=== PATIENT | male | born 1945 | race Caucasian/White ===

== ENCOUNTER 2023-11-08 10:44 | Outpatient (CLI) | payer MEDICARE, OTHER, SELFPAY ==
--- NOTE | 2023-11-08 10:46 | NM_ITS ---
APPROVED REPORT Exam: Nuclear Stress Test Indication: Abnormal EKG, HTN, High cholesterol Patient Location: Outpatient Stress Tech: Christie Cobos NM Tech:Lucrecia Haley, ARRT, RT (R)(N) Ht: 5 ft 8 in Wt: 180 lbs HR: 62 bpm BP: 149/71 mmHg BSA: 1.95 m2 TID: 1.14 BMI: 27.3 History: Abnormal EKG, HTN, High cholesterol Procedure: Patient received 0.4 mg of intravenous Lexiscan, resting heart rate 62 bpm, resting blood pressure 149/71 mmHg, with Lexiscan maximum heart rate achieved was 87 bpm which is % of the maximum predicted heart rate and blood pressure was 149/71 mmHg. With Lexiscan, patient denied any complaint of chest pain. Cardiac Stress and Resting SPECT Images: Cardiac Stress and Resting SPECT images were obtained using technetium 99m Myoview 30.1 mCi stress and 10.37 mCi at rest. Resting and stress imaging in supine and prone positions demonstrate medium sized, mild, partially reversible perfusion defect in the basal to mid inferior LV wall. Gated imaging demonstrates normal global and regional LV systolic function. LVEF is calculated at 62%. Conclusion: Medium sized, mild, partially reversible perfusion defect in the basal to mid inferior LV wall. Findings are suggestive of partial reversible ischemia. Gated imaging demonstrates normal global and regional LV systolic function. LVEF is calculated at 62%. Electronically signed by : Vanesa Saez MD 11/10/2023 11:26:28
--- NOTE | 2023-11-08 10:52 | CA_ITS ---
APPROVED REPORT EXAM: Comprehensive 2D, Doppler, and color-flow Echocardiogram Bisque Ware Dipper: Palma Dumont RDCS Ht: 5 ft 8 in Wt: 194lbs BSA: 2.02 BP: 173/80 mmHg Indications: ABN EKG, EDEMA,HTN,CVA 2D Dimensions Left Atrium 4.56 cm M: 3.0 - 4.0 EF AP4 40.40 % LVOT 2.34 cm (M/F) 1.5-2.5 GL Strain -13.1 % M-Mode Dimensions RVDd 2.58 cm (0.9-2.6) LVDd 5.27 cm (3.5-5.7) Ao Diam 2.91 cm (2.0-3.7) LVDs 2.38 cm (3.5-5.7) IVSd 0.85 cm (0.6-1.1) PWd 0.99 cm (0.6-1.1) EF (Teich) 85.30% FS 54.80% EDV (Teich) 133.60 mL ESV (Teich) 19.70 mL LV Diastology E Decel Time 161 (160-240 msec) E/A Ratio 1.0 MED E' 8.9 (>= 7 cm/sec) E'/MED E' Ratio 9.65 (<= 14) LAT E' 7.3 (>= 10 cm/sec) E/LAT E' Ratio 11.77 (<= 14) Mitral Valve MV E Max Edwin. 86.0 (40-130 cm/s) MV A Velocity 82.0 (40-130 cm/s) E/A Ratio 1.05 MV Decel. Time 161 (160-240 ms) Left Ventricle The left ventricle is normal size. The left ventricular systolic function is normal. The left ventricular ejection fraction is within the normal range. There is increased LV wall thickness. There is normal LV segmental wall motion. The left ventricular diastolic function is normal. LVEF is 55%. Right Ventricle Right ventricle is mildly dilated. The right ventricular systolic function is normal. Atria The left atrium size is normal. The right atrium size is normal. There is no Doppler evidence of interatrial shunt. Aortic Valve The aortic valve is mildly thickened. There is no aortic valvular stenosis. Trace aortic regurgitation. Mitral Valve The mitral valve is normal in structure. No evidence of mitral valve stenosis. Trace mitral regurgitation. Tricuspid Valve The tricuspid valve leaflets are thin and pliable. Trace tricuspid regurgitation. There is insufficient TR jet to estimate RVSP. Pulmonic Valve The pulmonary valve is normal in structure. Trace pulmonic regurgitation. Great Vessels The aortic root is normal in size. The ascending aorta is normal in size. IVC is normal in size and collapses >50% with inspiration. Pericardium There is no pericardial effusion. Conclusion Normal biventricular systolic function. Mild RV dilation. No significant valvular stenosis or regurgitation. Electronically signed by : Vanesa Saez MD 11/09/2023 23:34:07
--- NOTE | 2023-11-08 10:52 | CA_ITS ---
FINAL REPORT TECHNIQUE: Grayscale, color Doppler and duplex Doppler ultrasound of the kidneys, aorta and renal arteries was performed. Multiple velocities were measured. CLINICAL HISTORY: HTN COMPARISON: None FINDINGS: Aorta velocity: 88.2 cm/sec Right kidney: 10.4 cm. No evidence of hydronephrosis or mass. Right intrarenal RI: 0.65 Right renal artery velocity: 165 cm/sec. Right RAR (Renal artery-Aortic Ratio): 1.9 Left Kidney: 11.1 cm. No evidence of hydronephrosis or mass. Left intrarenal RI: 0.76 Left renal artery velocity: 175 cm/sec. Left RAR (Renal Artery-Aortic Ratio): 2 IMPRESSION: Less than 50% bilateral renal artery stenosis. CT angiogram or postcontrast MR angiogram would be more sensitive for evaluation of possible renal artery stenosis. Reviewed, Interpreted and Dictated by Wilman Monson III, MD Transcribed by Marjorie Starr Authenticated and [facility]
[2023-11-08] MEDS: REGADENOSON 0.4MG/5ML SYRINGE 0.400000000000000022 MG IV (13:39)
[2023-11-08] MEDS: ISOTOPE MYOVIEW (PER STUDY) 1 DOSE IV (13:39)
[2023-11-08] MEDS: SODIUM CHLORIDE 0.9% 10ML SYR (RAD ONLY) 10 ML IV ×2 (13:39)
--- NOTE | 2023-11-08 14:28 | CA_ITS ---
APPROVED REPORT Exam: Pharmacologic Technologist: Chirstie Cobos Ht: 5 ft 8 in Wt: 194 lbs BSA: 2.02 m2 HR: 60 bpm BP: 149/71 mmHg Indications: Abnormal ekg, HTN Medical History Medications: Montelukast,,,,, Finasteride,,,,, RoSUVASTATIN,,,,, Niifedipine,,,,, Stress Test Details Test: LEXISCAN HR Resting HR: 62 bpm Max Heart Rate (APMHR): 143 bpm Max HR Achieved: 87 bpm Target HR (85% APMHR): 122 bpm % of APMHR: 61 Recovery HR: 75 bpm BP Resting BP: 149.0/71.0 mmHg Max BP: 149.0/71.0 mmHg Recovery BP: 146.0/74.0 mmHg ECG Resting ECG: Normal sinus rhythm Stress ECG: No significant ST changes Clinical Exercise duration: 04:00 min Highest Stage Achieved: Exercise capacity: 1.0 METs Stress ECG Conclusion Symptoms: None Arrhythmias/Ectopy: None ST-T Changes: None Conclusion: Unremarkable Lexiscan stress test. Myoview images are reported separately. Test Summary REST . . . . . . . Resting REST 08:47 . . 62 . 149/ 71 . . Stage 1 . . . . . . . Myoview Injected Stage 1 01:00 . . 79 . . . . Stage 2 01:00 . . 76 . 145/ 70 . . Stage 3 01:00 . . 74 . 147/ 66 . . Stage 4 01:00 . . 74 . 148/ 69 . Stop exercise at 04:00 RECOVERY 01:00 . . 69 . 146/ 66 . . RECOVERY 02:00 . . 84 . 146/ 66 . . RECOVERY 03:00 . . 74 . 146/ 66 . . RECOVERY 03:18 . . 80 . 146/ 66 . . Electronically signed by : Vanesa Saez MD 11/10/2023 11:23:57
== END 2023-11-08 23:59 ==
PROVIDERS: PCP Nurse Practitioner Family; Visit Provider Nurse Practitioner Family
DX: R94.31 Abnormal electrocardiogram [ECG] [EKG] (principal); I10 Essential (primary) hypertension; I61.9 Nontraumatic intracerebral hemorrhage, unspecified
CPT/HCPCS: 78452; 93017; 93018; 93306; 93976; A9502; J2785

== ENCOUNTER 2023-11-22 08:18 | Day surgery (SDC) | payer MEDICARE, OTHER, SELFPAY ==
[2023-11-22] VITALS (14 sets, daily range): BP systolic 148–184; BP diastolic 74–99; PULSE 63–106; RESP 14–20; O2SAT 96–100; BMI 30.2
--- NOTE | 2023-11-22 07:04 | IR_ITS ---
APPROVED REPORT Patient Location: Outpatient PROCEDURES Selective coronary angiogram Drug-eluting stent deployment to the proximal LAD Drug-eluting stent deployment to the proximal mid dominant right coronary INDICATION Coronary artery disease, Angina pectoris, Abnormal Myoview Informed consent was obtained prior to the procedure. COMPLICATIONS NONE Estimated Blood Loss: LESS THAN 10 ML TECHNIQUE One percent lidocaine used to anesthetize the right anterior aspect of the wrist. The right radial artery was accessed via the Seldinger technique. A 6 Chinese sheath was placed in the right radial artery. 2.5 mg of Verapamil, 800 mcg of nitroglycerin, 1mg Lidocaine and 5000 U Heparin were given through the arterial sheath. The papa catheter was also used to perform selective coronary angiogram. At the end of the diagnostic angiogram therapeutic heparin was administered giving a therapeutic ACT and the guide catheter was placed in left main artery followed by Choice PT extra-support wire placed down the LAD. A 3 mm x 38 mm Runnells frontier stent was placed in the proximal LAD at 18 dawson reducing the severe stenosis to 0%. CINTHYA-3 flow was present before and after the procedure. Following this the guide catheter was placed in the right coronary artery followed by Choice PT to support wire placed distally and a 3.5 x 30 mm Denis frontier stent was deployed at 22 dawson reducing the stenosis. A 4 mm x 20 mm balloon was deployed at 22 dawson throughout the length of the stent. CINTHYA-3 flow was present before and after the procedure. At the end the procedure the apparatus was removed the sheath was removed and hemostasis was achieved using TR banding patient was transferred to the postop putting in stable condition ANGIOGRAPHIC RESULTS The left main artery Normal The left anterior descending artery Has a proximal concentric hazy 70% stenosis followed by an additional 40 to 50% stenosis The circumflex artery Nondominant normal The right coronary artery Is a dominant vessel and has proximal and mid vessel 60 to 70% stenoses The HOGAN ventriculogram reveals Not performed The left ventricular end-diastolic pressure Not measured IMPRESSION Severe two-vessel coronary disease as described above Successful stent to the proximal LAD severe disease reduced to 0% with 1 drug-eluting stent Successful stent to the proximal to mid dominant right coronary artery severe disease reduced to 0% with 1 drug-eluting stent PLAN 1. Plavix 75 mg a day plus aspirin 81 mg daily 2. LDL less than 55 to achieve that high intensity statin 3. Avoidance of tobacco products 4. Risk factor modification 5. Cardiac rehabilitation Electronically signed by : Maxx Mendoza MD 11/22/2023 11:27:35
[2023-11-22 09:02] LABS: Basophils # 0.1 K/mm3 (0-0.2); Basophils % 0.7 % (0.1-2.0); Eosinophils # 0.4 K/mm3 (0.0-0.4); Eosinophils % 4.5 % (0.1-12.0); Hematocrit 49.1 % (42.0-52.0); Hemoglobin 16.5 g/dL (14.1-18.0); Lymphocytes # 2.4 K/mm3 (0.7-4.5); Lymphocytes % 26.2 % (10-50); Mean Corpuscular HGB Conc 33.6 g/dL (31.8-35.4); Mean Corpuscular Hemoglobin 31.6 pg (27.0-31.2); Mean Corpuscular Volume 93.8 fl (80-94); Mean Platelet Volume 8.2 fl (7.4-10.4); Monocytes # 0.6 K/mm3 (0.1-1.0); Monocytes % 6.8 % (1.7-9.3); Neutrophils # 5.6 K/mm3 (1.8-7.8); Neutrophils % 61.8 % (37.0-80.0); Platelet Count 221 K/mm3 (142-424); Red Blood Count 5.23 M/mm3 (4.60-6.20); Red Cell Distribution Width 13.7 % (11.5-17.5); White Blood Count 9.1 K/mm3 (4.8-10.8)
[2023-11-22 09:09] LABS: Chloride 109 mmol/L (98-107)
[2023-11-22 09:10] LABS: Potassium 3.6 mmoL/L (3.5-5.1); Sodium 141 mmol/L (136-145)
[2023-11-22 09:13] LABS: Anion Gap 9.6 mEq/L (5-15); Blood Urea Nitrogen 18 mg/dl (9-20); Calcium 9.5 mg/dl (8.4-10.2); Carbon Dioxide 26 mmol/L (22.0-30.0); Creatinine Clearance Estimated 66 mL/min (50-200); Estimated Glomerular Filt Rate 59 ml/min (>60); GFR (African American) 71 ML/MIN (>60); Glucose 130 mg/dl (74-100)
[2023-11-22] MEDS: VERAPAMIL 2.5MG/ML 2ML VIAL 2.5 MG IV (10:36)
[2023-11-22] MEDS: LIDOCAINE 1% 10ML MDV 20 ML IJ (10:36)
[2023-11-22] MEDS: NITROGLYCERIN 800MCG/8ML SYR (CATH LAB) 800 MCG IA (10:36)
[2023-11-22] MEDS: HEPARIN 1,000 UNITS/500ML NS (CATH LAB) 3000 UNIT IV (10:36)
[2023-11-22] MEDS: diphenhydrAMINE 50MG/ML VIAL 50 MG IV (10:36)
[2023-11-22] MEDS: 0.9 % SODIUM CHLORIDE 500 ML 25 ML IV (10:37)
[2023-11-22] MEDS: HEPARIN 1,000 UNITS/ML 10ML VIAL (CATH LAB) 10000 UNIT IV (11:06)
[2023-11-22] MEDS: FENTANYL 100MCG/2ML VIAL 50 MCG IV (11:21)
[2023-11-22] MEDS: MIDAZOLAM HCL 1MG/1ML 5ML VIAL 1 MG IV (11:22)
[2023-11-22] MEDS: CLOPIDOGREL 300MG TABLET 600 MG PO (11:57)
[2023-11-22] MEDS: ASPIRIN 325MG TABLET 325 MG PO (12:01)
[2023-11-22] MEDS: IOPAMIDOL-370 (76%);100ML BOTTLE 140 ML IV (12:49)
[2023-11-22] MEDS: NIFEdipine XL 30MG TABLET 90 MG PO (15:27)
[2023-11-22 15:31] LABS: CATHL Activated Clotting Time 397 SEC (74-125)
== END 2023-11-22 15:48 | disposition home or self-care (01) ==
PROVIDERS: Visit Provider Internal Medicine
DX: R94.39 Abnormal result of other cardiovascular function study (principal); R94.31 Abnormal electrocardiogram [ECG] [EKG]; I10 Essential (primary) hypertension; I25.118 Atherosclerotic heart disease of native coronary artery with other forms of angina pectoris; Z79.899 Other long term (current) drug therapy
CPT/HCPCS: 80048; 85025; 85347; 92928; 93454; 99152; 99153; C1725; C1769; C1874; C1876; C9600; J1644; Q9967

== ENCOUNTER 2024-01-17 15:41 | Outpatient (CLI) | payer MEDICARE, OTHER, SELFPAY ==
[2024-01-17 16:39] LABS: Hemoglobin A1C 5.5 % (4.0-6.0)
[2024-01-17 18:05] LABS: Alanine Aminotransferase 52 U/L (12-78); Albumin Level 4.5 g/dl (3.5-5.0); Albumin/Globulin Ratio 1.3 (1.1-1.8); Alkaline Phosphatase 66 U/L (38-126); Anion Gap 16.3 mEq/L (5-15); Aspartate Amino Transferase 35 U/L (17-59); Bilirubin,Total 0.8 mg/dl (0.2-1.3); Blood Urea Nitrogen 17 mg/dl (9-20); Calcium 9.8 mg/dl (8.4-10.2); Carbon Dioxide 27 mmol/L (22.0-30.0); Chloride 103 mmol/L (98-107); Estimated Glomerular Filt Rate 54 ml/min (>60); GFR (African American) 65 ML/MIN (>60); Globulin 3.4 g/dL (1.3-3.2); Glucose 97 mg/dl (74-100); Potassium 4.3 mmoL/L (3.5-5.1); Sodium 142 mmol/L (136-145); Total Protein,Serum 7.9 g/dl (6.3-8.2)
== END 2024-01-17 23:59 | disposition home or self-care (01) ==
LOC: LAB 15:43
PROVIDERS: PCP Family Medicine; Visit Provider Specialist
DX: R73.9 Hyperglycemia, unspecified (principal); I61.9 Nontraumatic intracerebral hemorrhage, unspecified; E78.5 Hyperlipidemia, unspecified; G47.33 Obstructive sleep apnea (adult) (pediatric); I25.10 Atherosclerotic heart disease of native coronary artery without angina pectoris; I10 Essential (primary) hypertension
CPT/HCPCS: 36415; 80053; 83036

== ENCOUNTER 2024-01-26 10:22 | Outpatient (CLI) | payer MEDICARE, OTHER, SELFPAY ==
--- NOTE | 2024-01-26 10:23 | MR_ITS ---
FINAL REPORT CLINICAL HISTORY: H/O R-basal ganglia hemorrhagic CVA COMPARISON: None FINDINGS: Multiplanar MR imaging of the brain was performed without and with contrast. There is mild abnormal signal in the deep white matter, nonspecific, but in this age group likely ischemic microvascular change. There is hemosiderin deposition in the right basal ganglia best seen on images 14 and 15 of series #5, consistent with remote hemorrhage or hemorrhagic infarct. There is no evidence of acute intracranial hemorrhage or mass. No abnormal extra-axial fluid collection is seen. The ventricular size is within normal limits. There is no evidence of shift of the midline structures. The posterior fossa and brainstem have an unremarkable appearance. No area of abnormal restricted diffusion is identified. No abnormal contrast enhancement is seen. Normal major vessel vascular flow voids are noted. 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 There is a partially visualized fat signal structure in the left splenius musculature, measuring 5 cm and possibly greater in diameter. 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 IMPRESSION: Mild abnormal signal in the deep white matter, nonspecific but in this age group most likely ischemic microvascular change. Hemosiderin deposition is present in the right basal ganglia as described above, consistent with the patient's clinical history of a right basal ganglia hemorrhagic infarct. 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 Reviewed, Interpreted and Dictated by Kyler Tolbert MD Transcribed by Marjorie Starr Authenticated and [facility]
[2024-01-26] MEDS: SODIUM CHLORIDE 0.9% 10ML FLUSH SYRINGE 10 ML IV (12:12)
[2024-01-26] MEDS: GADOTERIDOL INJ 20ML SYRINGE 17 ML IV (12:12)
--- NOTE | 2024-01-26 12:35 | CA_ITS ---
FINAL REPORT TECHNIQUE: Color Doppler, duplex Doppler and jeter scale sonography of the bilateral neck vasculature was performed. Velocities were measured in the carotid arteries. Stenosis evaluation based on velocity criteria. CLINICAL HISTORY: CVA,HTN COMPARISON: None FINDINGS: The peak systolic velocity of the right common carotid artery is 77 cm/sec and internal carotid artery 79 cm/sec. The diastolic velocity in the internal carotid artery is 24 cm/sec. The ICA/CCA ratio is 1.1. Visually, a small amount of plaque is seen. These findings are consistent with less than 50% stenosis. The external carotid artery is patent. The right vertebral artery is patent with antegrade flow. The peak systolic velocity of the left common carotid artery is 73 cm/sec and internal carotid artery 94 cm/sec. The diastolic velocity in the internal carotid artery is 25 cm/sec. The ICA/CCA ratio is 1.4. Visually, a small amount of plaque is seen. These findings are consistent with less than 50% stenosis. The external carotid artery is patent. The left vertebral artery is patent with antegrade flow. IMPRESSION: No evidence of significant carotid stenosis. Bilateral patent vertebral arteries. If indicated, CTA or MRA could further evaluate. Reviewed, Interpreted and Dictated by Kyler Tolbert MD Transcribed by Marjorie Starr Authenticated and [facility]
== END 2024-01-26 23:59 | disposition home or self-care (01) ==
LOC: RAD 10:23
PROVIDERS: PCP Family Medicine; Visit Provider Specialist
DX: E78.5 Hyperlipidemia, unspecified; G47.33 Obstructive sleep apnea (adult) (pediatric); I63.00 Cerebral infarction due to thrombosis of unspecified precerebral artery; I61.8 Other nontraumatic intracerebral hemorrhage; I10 Essential (primary) hypertension
CPT/HCPCS: 70553; 93880; A9576

== ENCOUNTER → 2024-02-08 20:28 | Outpatient (CLI) | payer MEDICARE, OTHER, SELFPAY | LOC: SL 20:30 | PROVIDERS: PCP Family Medicine; Visit Provider Specialist | DX: G47.33 Obstructive sleep apnea (adult) (pediatric) (principal); G47.37 Central sleep apnea in conditions classified elsewhere | CPT/HCPCS: 95810 ==

== ENCOUNTER 2024-03-20 12:37 | Outpatient (CLI) | payer MEDICARE, OTHER, SELFPAY | END 2024-03-20 23:59 | disposition home or self-care (01) | LOC: RT 12:38 | PROVIDERS: Visit Provider Specialist | DX: G47.33 Obstructive sleep apnea (adult) (pediatric) (principal) | CPT/HCPCS: 94762 ==

== ENCOUNTER → 2024-05-29 20:22 | Outpatient (CLI) | payer MEDICARE, OTHER, SELFPAY | PROVIDERS: Visit Provider Specialist | DX: G47.33 Obstructive sleep apnea (adult) (pediatric) (principal) | CPT/HCPCS: 95811 ==

== ENCOUNTER 2025-06-11 12:42 | Outpatient (CLI) | payer MEDICARE, OTHER, SELFPAY ==
--- OUTSIDE RECORDS SUMMARY | 2025-06-06 10:30 | XMS_ITS | Encounter Summary ---
Author Organization [facility] Address [address] [place] [id number] Care Team Providers Care Canal Boat Operator Name Role Phone Socorro Crenshaw MD Primary Care Provider Reason for Visit * Reason Comments Pre-op Exam Encounter Details Date Type Department Care Team (Latest Contact Info) Description 06/06/2025 10:30 AM EDT Preop Office Visit [facility] - Primary Care, [place] [address], [place] [address] Alisson Castañeda NP [address] [place] [address] [place] [address] Age-related cataract of both eyes, unspecified age-related cataract type (Primary Dx); Preop examination Social History Tobacco Use Types Packs/Day Years Used Date Smoking Tobacco: Former Cigarettes 1 31 Passive Smoke Exposure: Past Smokeless Tobacco: Never Tobacco Cessation:Counseling Given: Not Answered Alcohol Use Standard Drinks/Week Comments Never 0 (1 standard drink = 0.6 oz pur e alcohol) PHQ-2 Answer Date Recorded PHQ-9 Auto Total 0 09/20/2024 Sex and Gender Information Value Date Recorded Sex Assigned at Male 09/15/2023 10:05 AM EST Legal Sex Male 10:00 AM EDT Gender Identity Male 09/15/2023 10:05 AM EST Sexual Orientation Straight 09/15/2023 10 :05 AM EST documented as of this encounter Last Filed Vital Signs Vital Sign Reading Time Taken Comments Blood Pressure 181/82 06/06/2025 10:19 AM EDT Pulse 55 06/06/2025 10:19 AM EDT Temperature 36.7 C (98 F) 06/06/2025 10:19 AM EDT Respiratory Rate 16 06/06/2025 10:19 AM EDT Oxygen Saturation 98% 06/06/2025 10:19 AM EDT Inhaled Oxygen Concentration - - Weight 90.3 kg (199 lb) 06/06/2025 10:19 AM EDT Height 170.2 cm (5' 7 ) 06/06/2025 10:19 AM EDT Body Mass Index 31.17 06/06/2025 10:19 AM EDT documented in this encounter Progress Notes * Alisson Castañeda NP - 06/06/2025 10:30 AM EDT [facility] PRE-OPERATIVE H&P VISIT PATIENT INFORMATION PLANNED SURGERY INFORMATION Patient Name: Lindy Han Date: 06/26/2025, 07/02/2025 Date of : 1945 Location: Surgery [facility] Procedure: Removal of left cataract 06/26/25, Removal of right cataract 07/02/2025 PCP: Socorro Crenshaw MD Consultation Requested by / Surgeon: Date of Service: 06/06/2025 Dr. Corrales Reason for Procedure: Age Related Cataracts Bilateral INDICATIONS / PRE-OP DIAGNOSIS No diagnosis found. ESTIMATED PERIOPERATIVE CARDIAC RISK Revised Cardiac Risk Index (Circ. 100:1043, 1999) the patient's risk factors for cardiac complications include history of cerebrovascular disease, putting him in RCI RISK CLASS II (1 risk factor, risk of major cardiac compl. appr. 1.3%). CLEARANCE STATUS No contraindications to planned surgery. May proceed with surgery as planned. No further testing needed. Patient may require post-operative respiratory and/or oxygen support due to: Sleep apnea diagnosis. SUBJECTIVE HISTORY Lindy Han is a 80 y.o. male who presents for preoperative examination. He has a past medical history of Allergic rhinitis, Back pain, Marin's palsy, Dyslipidemia, Essential hypertension, Hemorrhagic stroke (CMS/HCC), Joint pain, Neck pain, Personal history of colonic polyps, Sleep apnea, Stroke (CMS/HCC), Ulcerative colitis (CMS/HCC), Ulcerative colitis (CMS/HCC), Wears glasses, and Wears hearing aid. He denies fever, chills, or current illness. Patient is requiring clearance based on current medical problems to ensure chronic diseases are stable and no acute illness is present. SURGICAL ISSUES / FUNCTIONAL STATUS Question: Patient Response: Chest pain? No Shortness of breath? No Can you walk 1/2 mile or more? Yes Can you go up more than 2 flights of stairs? Yes Sleep apnea? No Bleeding disorder/Hx. of nose bleeds, excessive bleeding following a surgical procedure? No Personal or Family history of blood clots? No History of anesthesia complications? No Family history of anesthesia complications? No Loose, capped, or false teeth? yes Skin infections? No ALLERGIES Penicillins, Penicillin, and Alpine pollen-monegasque plantain MEDICATIONS *Herbals or Over the Counter Medicines: none Med List for Ambulatory Encounter[1]PAST MEDICAL HISTORY Lindy has a past medical history of Allergic rhinitis, Back pain, Marin's palsy, Dyslipidemia, Essential hypertension, Hemorrhagic stroke (CMS/HCC), Joint pain, Neck pain, Personal history of colonicpolyps, Sleep apnea, Stroke (CMS/HCC), Ulcerative colitis (CMS/HCC), Ulcerative colitis (CMS/HCC), Wears glasses, and Wears hearing aid. FAMILY HISTORY His family history includes Cancer in his mother; Prostate Cancer in his brother. SOCIAL HISTORY Patient reports that he has quit smoking. His smoking use included cigarettes. He has a 31 pack-year smoking history. He has been exposed to tobacco smoke. He has never used smokeless tobacco. He reports that he does not drink alcohol and does not use drugs. PAST SURGICAL HISTORY He has a past surgical history that includes HX Adenoidectomy; HX Cholecystectomy; HX Colonoscopy; HX Upper gastrointestinal endoscopy; HX Elbow surgery; hx knee surgery; hx shoulder surgery; HX Spinal fusion; HX Tonsillectomy; HX Uvulopalatopharygoplasty; HX [place] tooth extraction; and HX Upper gastrointestinal endoscopy. REVIEW OF SYSTEMS Review of Systems Constitutional: Negative. HENT: Negative. Eyes: Negative. Respiratory: Negative. Cardiovascular: Negative. Gastrointestinal: Negative. Endocrine: Negative. Genitourinary: Negative. Musculoskeletal: Negative. Skin: Negative. Allergic/Immunologic: Negative. Neurological: Negative. Hematological: Negative. Psychiatric/Behavioral: Negative. OBJECTIVE Today's Vital Signs There were no vitals taken for this visit. Estimated body mass index is 31.32 kg/m?? as calculated from the following: Height as of 03/28/25: 5' 7 (1.702 m). Weight as of 03/28/25: 200 lb (90.7 kg). Physical ExamRELEVANT LABORATORY VALUES / PRE-OP WORKUP No results found for this or any previous visit (from the past 6 weeks). EKG: No results found for this or any previous visit. ASSESSMENT No diagnosis found. PLAN Patient requires endocarditis prophylaxis: No Recommend perioperative beta-wes: No Instructions for Patient: No food or liquids the morning of surgery. Call surgeon if develops respiratory illness, fever, or other illness. Hold the following medications the morning of surgery Hold all medications, patient reports he takes beta-wes in the evening Stop Aspirin, Advil, Motrin, Ibuprofen, Aleve, other NSAIDs. 7 days prior to surgery. May take Tylenol. Call Dr. Corrales's office to see if you need to stop the Plavix or Aspirin. Needs to see cardiology. Advance Directives: Does the patient have any Advance Directives in place and on file in [facility]? N Care Team Information: Patient Care Team: Socorro Crenshaw MD as PCP - General (Family Medicine) SLOAN was seen today for pre-op exam. Diagnoses and all orders for this visit: Age-related cataract of both eyes, unspecified age-related cataract type Preop examination NOT CLEARED FOR SURGERY TODAY. BP IS HIGH, REPEAT WAS STILL 160/82. NEEDS TO FOLLOW UP WITH CARDIOLOGY AND GET BP UNDER CONTROL FIRST. Electronically signed by: Alisson Castañeda NP, 06/06/2025 at 10:12 AM Please note that this consultation serves to evaluate the patient's medical conditions, with specific attention to the heart, lungs, and infection status. The appropriateness of the operation versus alternative therapies was not evaluated. Neither were risks and benefits specific to the operation discussed [1] Medications List Medication Sig aspirin 81 mg tablet Take 81 mg by mouth in the morning. bisoprolol (ZEBETA) 5 mg tablet Take 2.5 mg by mouth in the morning. budesonide (ENTOCORT EC) 3 mg Capsule, Delayed & Ext.Release Take 9 mg by mouth daily as needed. clopidogreL (PLAVIX) 75 mg tablet Take 75 mg by mouth in the morning. finasteride (PROSCAR) 5 mg tablet Take 1 Tablet (5 mg) by mouth daily. losartan (COZAAR) 50 mg Tablet Take 50 mg by mouth daily. Mesalamine 0.375 gram Capsule, Sust. Release 24 hr Take 1.5 g by mouth daily. montelukast (SINGULAIR) 10 mg Tablet Take 1 Tablet (10 mg) by mouth in the morning. mupirocin (BACTROBAN) 2 % ointment Apply topically as needed. rosuvastatin (CRESTOR) 10 mg Tablet Take 1 Tablet by mouth daily. No current facility-administered medications for this visit. documented in this encounter Plan of Treatment Upcoming Encounters Date Type Department Care Team (Late st Contact Info) Description 09/14/2025 10:10 AM EST Appointment [facility], [place] [address], [place] [address] 09/21/2025 9:40 AM EST Appointment [facility], [place] [address] [place] [address] Socorro Crenshaw MD [address] [place] [id number] documented as of this encounter Visit Diagnoses Diagnosis Age-related cataract of both eyes, unspecified age-related cataract type- Primary Preop examination Preoperative examination, unspecified documented in this encounter Care Teams Canal Boat Operator Relationship Specialty Start Date End Date Socorro Crenshaw MD [address] [place] [id number] PCP - General Family Medicine 09/21/23 documented as of this encounter
--- OUTSIDE RECORDS SUMMARY | 2025-06-11 12:51 | XMS_ITS | Clinical Summary ---
Author Organization [facility] Address [address] [facility] [address] [place] [address] Phone Care Team Providers Care Facing Cutting Machine Operator Name Role Phone Socorro Crenshaw MD Primary Care Pro vider Allergies Active Allergy Reactions Criticality Noted Date Comments Amoxicillin Anaphylaxis High 07/10/2024 Penicillins Anaphylaxis,Hives,It lloyd, Rash,Shortness Of Breath High 05/30/2016 [place] Pollen-Syrian Plantain Shortness Of Breath,Itching High 05/14/2020 Medications aspirin 81 mg Oral Tablet, Chewable Take 81 mg by mouth daily. 12/06/2023 Active NIFEdipine (PROCARDIA XL) 90 mg Oral Tablet Extended Rel 24 hr 09/21/2023 Active montelukast (SINGULAIR) 10 mg Oral Tablet 10/07/2023 Acti ve bisoprolol (ZEBETA) 5 mg Oral Tablet 11/22/2023 Active clopidogreL (PLAVIX) 75 mg Oral Tablet 11/22/2023 Active finasteride (PROSCAR) 5 mg Oral Tablet 09/21/2023 Active rosuvastatin (CRESTOR) 10 mg Oral Tablet 09/21/2023 Active doxycycline hyclate (VIBRAMYCIN) 100 mg Oral Capsule TAKE 1 CAPSULE BY MOUTH TWICE DAILY WITH FOOD AND A FULL GLASS OF WATER FOR 14 DAYS 05/04/2024 Active budesonide (ENTOCORT EC) 3 mg Oral Capsule, Delayed & Ext.Release Take 3 Capsules by mouth daily as needed (UC flare). 90 Capsule 1 10/24/2024 Active Mesalamine (APRISO) 0.375 gram Oral Capsule, Sust. Release 24 hr Take 4 Capsules by mouth daily. 360 Capsule 3 01/17/2025 Active Surgical History Surgery Date Site/Laterality Comments POLYPECTOMY SIGMOIDOSCOPY COLONOSCOPY Medical History Medical History Date Comments Colon polyp Ulcerative colitis (HCC) Family History Medical History Relation Name Comments Prostate Cancer Brother Brain Cancer Mother Relation Name Status Comments Brother Mother Social History Tobacco Use Types Packs/Day Years Used Date Smoking Tobacco: Former Cigarettes 1 15 Q uit: 08/30/1993 Passive Smoke Exposure: Never Smokeless Tobacco: Never Alcohol Use Standard Drinks/Week Comments Not Currently 0 (1 standard drink = 0.6 oz pur e alcohol) Sexually Active Control Partners Comments Not Currently Female Sex and Gender Information Value Date Recorded Sex Assigned at Male 03/22/2024 2:14 PM EDT Legal Sex Male 2:14 PM EDT Gender Identity Male 03/22/2024 2:14 PM EDT Sexual Orientation Not on file Last Filed Vital Signs Vital Sign Reading Time Taken Comments Blood Pressure 130/76 10/24/2024 10:54 AM EST Pulse 54 10/24/2024 10:54 AM EST Temperature 37.4 C (99.3 F) 10/24/2024 9:00 AM EST Respiratory Rate 16 10/24/2024 10:54 AM EST Oxygen Saturation 95% 10/24/2024 10:54 AM EST Inhaled Oxygen Concentration - - Weight 93.3 kg (205 lb 9.6 oz) 10/24/2024 9:00 A M EST Height 172.7 cm (5' 8 ) 10/24/2024 9:00 AM EST Body Mass Index 31.26 10/24/2024 9:00 AM EST Plan of Treatment Health Maintenance Due Date Last Done Comments Cologuard 1945 FIT 1946 Sigmoidoscopy 1946 Virtual Colonography 1946 Wellness Exam Medicare 1949 Hepatitis C Screening 1964 DTaP/TDaP/Td (1 - Tdap) 1965 Pneumococcal Vaccine 50+ (1 of 1 - PCV) 1996 Zoster (1 of 2) 1996 COVID-19 Vaccine ( season) 2025 Influenza Vaccine (#1) 2025 , 06/02/2023, 05/24/2019, Additional history exists Colon Cancer Screening 10/24/2025 Colonoscopy 10/24/2025 10/24/2024 RSV or 60+ Completed 06/20/2024 Hepatitis B Vaccine Aged Out No longe r eligible based on patient's age to complete this topic Meningococcal B Vaccine Aged Out No l onger eligible based on patient's age to complete this topic Procedures Procedure Name Priority Date/Time Associated Diagnosis Comments COLONOSCOPY Routine 10/24/2024 10:33 AM EST Other ulcerative colitis without complication (HCC) from Last 3 Months or Most Recently Relevant to Health Maintenance Results * COLONOSCOPY (10/24/2024 10:33 AM EST) Anatomical Region Laterality Modality Endoscopy Narrative 10/24/2024 10:37 AM EST Table formatting from the original result was not included. Findings Two sessile and benign-appearing polyps measuring from 3 mm in the transverse colon; performed cold forceps biopsy with complete removal One 6 mm sessile, benign-appearing and inflammatory polyp in the transverse colon; performed cold snare with complete removal and retrieved specimen Mild erythematous and friable mucosa in the transverse colon and rectum, consistent with ulcerative colitis; electronic chromoendoscopy (FICE) was used; performed cold forceps biopsy Two sessile and benign-appearing polyps measuring from 7 mm up to 10 mm in the sigmoid colon; performed cold snare with complete removal and retrieved specimen; performed hot snare with complete removal and retrieved specimen The terminal ileum appeared normal. Recommendation Await pathology results Recommend a high fiber diet. Repeat colonoscopy in 1 year, due: 10/24/2025 Will start Apriso. Patient requested an as needed medication for potential UC flare. Will give entocort prn. Pre-Procedure Diagnosis / Indication Other ulcerative colitis without complication (HCC) Post-Procedure Diagnosis Other ulcerative colitis without complication (HCC) Staff Staff Role Rosio Barrios, RN Nurse Momo Winston III, MD Performing Provider Kaitlin Jimenez CRNA HARDBOARD PANEL PRINTER Medications See Anesthesia Record. Preprocedure A history and physical has been performed, and patient medication allergies have been reviewed. The patient's tolerance of previous anesthesia has been reviewed. The risks and benefits of the procedure and the sedation options and risks were discussed with the patient. All questions were answered and informed consent obtained. ASA 3 - Patient with severe systemic disease Details of the Procedure The patient underwent monitored anesthesia care, which was administered by an anesthesia professional. The patient's blood pressure, heart rate, level of consciousness, oxygen, respirations, ECG and ETCO2 were monitored throughout the procedure. A digital rectal exam was performed. The scope was introduced through the anus and advanced to the cecum. Retroflexion was performed in the rectum. Bowel prep was adequate. The patient experienced no blood loss. The procedure was not difficult. The patient tolerated the procedure well. There were no apparent adverse events. Patient provided education and educated on specific discharge instructions. Patient educated on medications given during the procedure and new medications for discharge. Patient verbalizes understanding of discharge education. Patient stable and awaiting transport for discharge. Events Procedure Events Event Event Time ENDO SCOPE IN TIME 10/24/2024 10:16 AM ENDO CECUM REACHED 10/24/2024 10:19 AM ENDO SCOPE WITHDRAW BEGIN 10/24/2024 10:19 AM TSG LUME TI REACHED 10/24/2024 10:21 AM ENDO SCOPE OUT TIME 10/24/2024 10:32 AM Specimens ID Type Source Tests Collected by Time 1 : polyp Tissue Large Intestine, Transverse Colon TSG PATHOLOGY ORDER Momo Winston III, MD 10/24/2024 1033 2 : polyp Tissue Large Intestine, Transverse Colon TSG PATHOLOGY ORDER Momo Winston III, MD 10/24/2024 1033 3 : Tissue Large Intestine, Transverse Colon TSG PATHOLOGY ORDER Momo Winston III, MD 10/24/2024 1033 4 : Tissue Large Intestine, Sigmoid Colon TSG PATHOLOGY ORDER Momo Winston III, MD 10/24/2024 1033 5 : Tissue Large Intestine, Rectum TSG PATHOLOGY ORDER Momo Winston III, MD 10/24/2024 1033 Momo Winston III, MD ENDOSCOPY PROCEDURE ORDERA BLES Final Result from Last 3 Months or Most Recently Relevant to Health Maintenance Insurance MEDICARE [place] PART A AND B MEDICARE [place] PART A AND B Care Teams Facing Cutting Machine Operator Relationship Specialty Start Date End Date Socorro Crenshaw MD [address] [place] [address] PCP - General Family Medicine 07/10/24
--- OUTSIDE RECORDS SUMMARY | 2025-06-11 12:51 | XMS_ITS | Encounter Summary ---
Author Organization [facility] Address [address] [place], [place] [address] Care Team Providers Care Seamer Elastic Band Name Role Phone Socorro Crenshaw MD Primary Care Provider Reason for Visit * Reason Onset Date Comments Medications Refill 01/01/2024 Encounter Details Date Type Department Care Team (Late st Contact Info) Description 01/01/2024 Refill [facility] [address], [address] [place], [place] [id number] Socorro Crenshaw MD [address] [place] [address] [place] [address] Medications Refill Social History Tobacco Use Types Packs/Day Years Used Date Smoking Tobacco: Former Cigarettes 1 31 Passive Smoke Exposure: Past Smokeless Tobacco: Never Alcohol Use Standard Drinks/Week Comments Never 0 (1 standard drink = 0.6 oz pur e alcohol) PHQ-2 Answer Date Recorded PHQ-9 Auto Total 0 09/21/2023 Sex and Gender Information Value Date Recorded Sex Assigned at Male 09/15/2023 10:05 AM EST Legal Sex Male 10:00 AM EDT Gender Identity Male 09/15/2023 10:05 AM EST Sexual Orientation Straight 09/15/2023 10 :05 AM EST documented as of this encounter Plan of Treatment Upcoming Encounters Date Type Department Care Team (Late st Contact Info) Description 09/14/2025 10:10 AM EST Appointment [facility] [address], [address] [place] [id number] 09/21/2025 9:40 AM EST Appointment [facility] Physicians - Primary Care, [place] [address], [address] [place], [place] [id number] Socorro Crenshaw MD [address] [place] [address] [place] [address] documented as of this encounter Visit Diagnoses Not on filedocumented in this encounter Care Teams Seamer Elastic Band Relationship Specialty Start Date End Date Socorro Crenshaw MD [address] [place] [address] PCP - General Family Medicine 09/21/23 documented as of this encounter
--- OUTSIDE RECORDS SUMMARY | 2025-06-11 12:51 | XMS_ITS | Encounter Summary ---
Author Organization [facility] Address [address] [place] [id number] Care Team Providers Care Catering Staff Member Name Role Phone Socorro Crenshaw MD Primary Care Provider Encounter Details Date Type Department Care Team (Late st Contact Info) Description 01/19/2024 Lab Results [facility] [address] [place] [address] Socorro Crenshaw MD [address] [place] [address] [place] [address] Social History Tobacco Use Types Packs/Day Years [...] Description 09/14/2025 10:10 AM EST Appointment [facility] Primary [facility] [place] [address] [place] [address] [place] [address] 09/21/2025 9:40 AM EST Appointment [facility] - Primary Care, [place] [address], [place] [address] Socorro Crenshaw MD [address] [place] [address] [place] [address] documented as of this encounter Visit Diagnoses Not on filedocumented in this encounter Care Teams Catering Staff Member Relationship Specialty Start Date End Date Socorro Crenshaw MD [address] [facility] [place] [place] [address] PCP - General Family Medicine 09/21/23 documented as of this encounter
--- OUTSIDE RECORDS SUMMARY | 2025-06-11 12:51 | XMS_ITS | Clinical Summary ---
Author Organization [facility] Address [address] [place] [address] Care Team Providers Care Director Of Residence Life Name Role Phone Socorro Crenshaw MD Primary Care Provider Allergies Active Allergy Reactions Criticality Noted Date Comments Penicillin Anaphylaxis,Hives,It lloyd, Rash,Shortness Of Breath 06/13/2016 Penicillins Anaphylaxis High 09/20/2023 [place] Pollen-Greek Plantain Itching,Shortness Of Breath 05/14/2020 Medications clopidogreL (PLAVIX) 75 mg tablet Take 75 mg by mouth in the morning. Active bisoprolol (ZEBETA) 5 mg tablet Take 2.5 mg by mouth in the morning. Active aspirin 81 mg tablet Take 81 mg by mouth in the morning. 4 Active finasteride (PROSCAR) 5 mg tabletIndications :Enlarged prostate Take 1 Tablet (5 mg) by mouth daily. 90 Tablet 3 5 Active montelukast (SINGULAIR) 10 mg TabletIndications :Seasonal allergic rhinitis, unspecified trigger Take 1 Tablet (10 mg) by mouth in the morning. 90 Tablet 3 5 Active losartan (COZAAR) 50 mg Tablet Take 50 mg by mouth daily. 5 Active budesonide (ENTOCORT EC) 3 mg Capsule, Delayed & Ext.Release Take 9 mg by mouth daily as needed. 5 Active Mesalamine 0.375 gram Capsule, Sust. Release 24 hr Take 1.5 g by mouth daily. 5 Active mupirocin (BACTROBAN) 2 % ointment Apply topically as needed. 5 Active rosuvastatin (CRESTOR) 10 mg TabletIndications :Mixed hyperlipidemia,Ce rebrovascular accident (CVA) due to other mechanism (CMS/HCC),Hemorrh agic stroke (CMS/HCC),Chronic focal neurological deficit Take 1 Tablet by mouth daily. 90 Tablet 3 5 Active Active Problems Problem Noted Date Diagnosed Date Hemiplegia and hemiparesis f ollowing cerebral infarction affecting left non-dominant side 09/20/2024 Ulcerative colitis without c omplications, unspecified location 09/20/2024 Coronary artery disease invo lving [place] heart, unspecified vessel or lesion type, unspecified whether angina present 03/21/2024 S/P angioplasty with stent 03/21/2024 Chronic focal neurological deficit 09/21/2023 Assessment & Plan (03/28/2025 1:51 PM EDT): Patient doing well on rosuvastatin 10 mg oral daily along with other such risk management. Will continue to monitor going forward and re-check a fasting lipid profile in 6 months. Orders: rosuvastatin (CRESTOR) 10 mg Tablet; Take 1 Tablet by mouth daily. 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 Will continue to monitor going forward and re-check a fasting lipid profile in 6 months. Orders: rosuvastatin (CRESTOR) 10 mg Tablet; Take 1 Tablet by mouth daily. Cerebrovascular accident (CVA) 11/10/2017 0 09/21/2023 Assessment & Plan (03/28/2025 1:51 PM EDT): Patient doing well on rosuvastatin 10 mg oral daily along with other such risk management. Will continue to monitor going forward and re-check a fasting lipid profile in 6 months. Orders: rosuvastatin (CRESTOR) 10 mg Tablet; Take 1 Tablet by mouth daily. 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 Will continue to monitor going forward and re-check a fasting lipid profile in 6 months. Orders: rosuvastatin (CRESTOR) 10 mg Tablet; Take 1 Tablet by mouth daily. High blood pressure 05/24/2016 09/21/2023 Assessment & Plan (03/28/2025 1:51 PM EDT): Elevated for the patient at 154/69; however, the patient is asymptomatic, and his physical exam shows no abnormalities other than his asymptomatic bradycardia. Given the balance between the patient's blood pressure and heart rate, management was deferred to cardiology, and the patient was encouraged to monitor his blood pressure and heart rate at home. Will continue to follow going forward and see back in 6 months. Encounters Date Type Department Care Team Description 06/06/2025 10:30 AM EDT Preop Office Visit [facility] Primary [facility] [place] [address] [place] [address] Alisson Castañeda NP Age-related cataract of both eyes, unspecified age-related cataract type (Primary Dx); Preop examination 03/28/2025 1:10 PM EDT Office Visit [facility] [address] [place] [address] [place] [address] Socorro Crenshaw MD Primary hypertension (Primary Dx); Mixed hyperlipidemia; Cerebrovascular accident (CVA) due to other mechanism (CMS/HCC); Hemorrhagic stroke (CMS/HCC); Chronic focal neurological deficit from Last 3 Months Immunizations Immunization Administration Dates Next Due Flu, Preservative&Egg Free, Trivalent Flucelvax (6mos-64yrs) 06/02/2023 INFLUENZA, RECOMBINANT, QUAD , PRESERVATIVE FREE (65YRS AND OVER) 05/31/2025 Influenza 06/20/2024,05/24/2019,06/21/2017 Pneumococcal 20-valent Conju gate Vaccine (PREVNAR) 05/31/2025 RSV (60+YRS,IM) AREXVY 06/20/2024 Family History Medical History Relation Name Comments Prostate Cancer Brother Cancer Mother Relation Name Status Comments Brother Father Mother Social History Tobacco Use Types Packs/Day [...] Orientation Straight 09/15/2023 10 :05 AM EST Last Filed Vital Signs Vital Sign Reading [...] Mass Index 31.17 06/06/2025 10:19 AM EDT Plan of Treatment Upcoming Encounters Date Type Department Care Team (Late st Contact Info) Description 09/14/2025 10:10 AM EST Appointment [facility] Primary Care [place] [address] [place] [address] 09/21/2025 9:40 AM EST Appointment [facility] [address] [place] [address] Socorro Crenshaw MD [address] [place] [place] [address] Health Maintenance Due Date Last Done Comments Hepatitis C Virus (HCV) Screening 1966 BMI Counseling 08/30/2024 Lipid Monitoring 09/14/2025 09/14/2024, 09/21/2023 Fall Risk Assessment 09/20/2025 09/20/2024 Tetanus Vaccination (Every 10 Years) 03/27/2026 Postponed from 1964 (Patient Declined) Zoster-RZV(Shingrix) (1 of 2) 03/28/2026 Postponed from 1996 (Patient Declined) RSV Vaccines Completed 06/20/2024 Lipid Screening Discontinued 09/14/2024, 09/21/2023 (Reporting Purposes Only) Calendar Year Medicare Annual Wellness (AWV) Completed 09/20/2024 Advance Care Planning Completed 09/20/2024, 024 Depression Screening Completed 09/20/2024, 09/21/19 24 Influenza Vaccination Completed 05/31/2025 , 06/20/2024, 06/02/2023, Additional history exists Pneumococcal Vaccine: 50+ Years Completed 05/31/2025 COVID-19 Vaccine Discontinued Procedures Procedure Name Priority Date/Time Associated Diagnosis Comments LIPID PROFILE Routine 09/14/2024 8:25 AM EST Mixed hyperlipidemia from Last 3 Months or Most Recently Relevant to Health Maintenance Results * (ABNORMAL) LIPID PROFILE (09/14/2024 8:25 AM EST) Cholesterol 101(L) 125 - 199 mg/dL [facility] EXTERNAL LAB Comment: TOTAL CHOLESTEROL INTERPRETATION: Less than 200 mg/dL Desireable 200-239 mg/dL Borderline Greater or Equal to 240 mg/dL High LDL Calculated 41 0 - 100 mg/dL [facility] EXTERNAL LAB Comment: LDL CHOLESTEROL INTERPRETATION: Less than 100 mg/dL Optimal 100-129 mg/dL Near optimal/above optimal 130-159 mg/dL Borderline High 160-189 mg/dL High Greater or Equal to 190 mg/dL Very High HDL 35(L) 40 - 180 mg/dL [facility] EXTERNAL LAB Comment: HDL CHOLESTEROL INTERPRETATION: Less than 40 mg/dL Low Greater than 60 mg/dL Desirable Triglycerides 123 0 - 149 mg/dL [facility] EXTERNAL [facility] Comment: TOTAL TRIGLYCERIDE INTERPRETATION: Less than 150 mg/dL Normal 150-199 mg/dL Borderline HIgh 200-499 mg/dL High Greater or Equal to 500 mg/dL Very High NONHDL Calculated 66 0 - 129 mg/dL [facility] EXTERNAL LAB Comment: NON-HDL INTERPRETATION: Less than 130 mg/dL Desirable 130-159 mg/dL Above Desirable 160-189 mg/dL Borderline High 190-219 mg/dL High Greater than or equal to 220 mg/dL Very High Serum (Serum) 09/14/2024 8:2 5 AM EST 09/14/2024 6:24 PM EST Narrative [facility] EXTERNAL [facility] - 09/14/2024 6:43 PM EST Has the patient fasted?->Yes us Socorro Crenshaw MD CHEMISTRY ORDERABLES Fi nal Result [facility] [address] from Last 3 Months or Most Recently Relevant to Health Maintenance Insurance MEDICARE FOR LIFE SUPPLEMENT Care Teams Director Of Residence Life Relationship Specialty Start Date End Date Socorro Crenshaw MD [address] [facility] [place] [address] PCP - General Family Medicine 09/21/23
--- OUTSIDE RECORDS SUMMARY | 2025-06-11 12:51 | XMS_ITS | Encounter Summary ---
Author Organization [facility] Address [address] [place] [address] Care Team Providers Care Aircraft Hydraulic Equipment Mechanic Name Role Phone Socorro Crenshaw MD Primary Care Provider Encounter Details Date Type Department Care Team (Late st Contact Info) Description 01/19/2024 Abstract [facility] [place] [address] [place] [address] Socorro Crenshaw MD [address] [place] [address] Social History Tobacco Use Types [...] Description 09/14/2025 10:10 AM EST Appointment [facility] Primary Care [place] [address] [place] [address] [place] [address] 09/21/2025 9:40 AM EST Appointment [facility] - Primary Care, [place] [address] [place] [address] Socorro Crenshaw MD [address] [facility] [address] documented as of this encounter Visit Diagnoses Not on filedocumented in this encounter Care Teams Aircraft Hydraulic Equipment Mechanic Relationship Specialty Start Date End Date Socorro Crenshaw MD [address] [facility] [place] [address] PCP - General Family Medicine 09/21/23 documented as of this encounter
[2025-06-11 13:19] LABS: Hematocrit 46.7 % (42.0-52.0); Hemoglobin 15.7 g/dL (14.1-18.0); Immature Granulocytes % 0.5 %; Mean Corpuscular HGB Conc 33.6 g/dL (31.8-35.4); Mean Corpuscular Hemoglobin 30.5 pg (27.0-31.2); Mean Corpuscular Volume 90.7 fl (80-94); Nucleated Red Blood Cells % 0 %; Platelet Count 209 K/mm3 (142-424); Red Blood Count 5.15 M/mm3 (4.60-6.20); Red Cell Distribution Width-SD 42.5 fL; White Blood Count 7.7 K/mm3 (4.8-10.8)
[2025-06-11 13:48] LABS: Alanine Aminotransferase 37 U/L (12-78); Albumin Level 3.9 g/dl (3.5-5.0); Alkaline Phosphatase 71 U/L (38-126); Anion Gap 13.7 mEq/L (5-15); Aspartate Amino Transferase 26 U/L (17-59); Bilirubin,Direct 0.3 mg/dl (0.0-0.4); Bilirubin,Indirect 0.6 mg/dL (0.0-0.9); Bilirubin,Total 0.9 mg/dl (0.2-1.3); Bilirubin,Unconjugated 0.6 mg/dL (0.0-1.1); Blood Urea Nitrogen 15 mg/dl (9-20); Calcium 9.3 mg/dl (8.4-10.2); Carbon Dioxide 26 mmol/L (22.0-30.0); Chloride 105 mmol/L (98-107); Cholesterol 90 mg/dl (140-200); Creatinine,Serum 1.20 mg/dl (0.66-1.25); Estimated Glomerular Filt Rate 58 ml/min (>60); GFR (African American) 71 ML/MIN (>60); Glucose 94 mg/dl (74-100); HDL Cholesterol 33 mg/dl (40-60); Magnesium 2.1 mg/dl (1.6-2.3); Potassium 4.7 mmoL/L (3.5-5.1); Sodium 140 mmol/L (136-145); Total Protein,Serum 6.6 g/dl (6.3-8.2); Triglycerides 181 mg/dl (30-150)
[2025-06-11 14:04] LABS: Free T4 (Free Thyroxine) 0.96 ng/dl (0.78-2.19)
[2025-06-11 14:19] LABS: Thyroid Stimulating Hormone 3.18 uIU/mL (0.465-4.68)
== END 2025-06-11 23:59 | disposition home or self-care (01) ==
LOC: LAB 12:44
PROVIDERS: PCP Family Medicine; Visit Provider Internal Medicine
DX: I25.10 Atherosclerotic heart disease of native coronary artery without angina pectoris (principal); I10 Essential (primary) hypertension; E78.5 Hyperlipidemia, unspecified
CPT/HCPCS: 36415; 80048; 80061; 80076; 83735; 84439; 84443; 85025